=== PATIENT | male | born 1960 | race African-American/Black ===

== ENCOUNTER 2021-02-07 02:04 | Emergency (ER) | payer OTHER ==
[~2021-02-07] VITALS: Ht 167.6 cm; Wt 68.0 kg
--- NOTE | ~2021-02-07 | EMS ---
[address] [address] EMS Patient Care Report Name: ELIAS RODRIGUEZ Room #: DEP JEFFREY Baker#: [id number] Admission: 02/07/21 Attend Phys: Discharge: 02/07/21 Date of : 58 Report #: [id number] THIS REPORT FOR: //name// Report Transmitted: 02/07/2021 22:19 EMS Care Summary [place], [place]/[facility] Incident [id number] @ 02/07/2021 01:26 Incident Location [address] [place] [id number] Patient ELIAS RODRIGUEZ Male, 60 Years 1960 Patient Address [address] [place], [place] [id number] Patient History Colon Cancer,Human Immunodeficiency Virus Disease (HIV/AIDS),Genital Herpes, Patient Allergies No known allergies, Patient Medications Other, Chief Complaint BUMP ON HEAD / HEADACHE Disposition Transported No Lights/[place] Dispatch Reason Headache Transported To [facility] Narrative M40 WAS DISPATCHED TO A RESIDENCE ON A HEADACHE. ON ARRIVAL PT IS FOUND WALKING OUT OF HIS APARTMENT TOWARDS THE AMBULANCE. [address] [address] EMS Patient Care Report Name: ELIAS RODRIGUEZ Room #: DEP ER Olivia#: [id number] Admission: 02/07/21 Attend Phys: Discharge: 02/07/21 Date of : 58 Report #: [id number] Initial Vitals @01:49P: 92,R: 16,BP: 128/86,Pain: 10/10,GCS: 15,SpO2: 100,Revised Trauma: 12, @01:59P: 90,R: 16,BP: 124/84,Pain: 10/10,GCS: 15,SpO2: 100,Revised Trauma: 12, Assessments @01:45MENTAL:Person Oriented,Time Oriented,Event Oriented,Place Oriented,SKIN:HEENT:Head/Face: Other,Neck/Airway: No Abnormalities,LUNG SOUNDS:General: No Abnormalities,ABDOMEN:General: No Abnormalities,PELVIS//GI:No Abnormalities,EXTREMITIES:Left Arm: No Abnormalities,Right Arm: No Abnormalities,Left Leg: No Abnormalities,Right Leg: No Abnormalities,PULSE:NEURO:No Abnormalities, Impression Need for continuous medical supervision Procedures @01:45ALS AssessmentResponse: UnchangedSucceeded Timeline 01:25,Call Received 01:25,Dispatch Notified 01:26,Dispatched 01:28,En Route 01:43,On Scene 01:45,At Patient 01:45,ALS Assessment,Response: UnchangedSucceeded, 01:49,BP: 128/86 M,PULSE: 92,RR: 16 R,SPO2: 100 Ox,ETCO2: ,BG: ,PAIN: 10,GCS: 15, 01:51,Depart Scene 01:59,BP: 124/84 M,PULSE: 90,RR: 16 R,SPO2: 100 Ox,ETCO2: ,BG: ,PAIN: 10,GCS: 15, 02:00,At Destination 02:09,Call Closed Disclaimer v1.1 Copyright 2020 [employer] This EMS Care Summary contains data elements from the applicable legal record (which may be displayed differently). It is designed to provide pertinent information for the following purposes: continuity of care, clinical quality, and state data reporting. The complete legal record is available to ED staff and administrators of the receiving hospital in [facility] Patient Tracker. All data is provided "as is."
[2021-02-07] MEDS ORDERED: HIV MEDS (02:13)
[2021-02-07 04:19] VITALS: BP 112/76
== END 2021-02-07 04:25 | disposition home or self-care (01) ==
LOC: ER 02:04
DX: L73.9 Follicular disorder, unspecified (principal); Z85.048 Personal history of other malignant neoplasm of rectum, rectosigmoid junction, and anus